=== PATIENT | female | born 2000 | race American Indian/Alaskan Native ===

== ENCOUNTER 2019-11-23 21:23 | Emergency (ER) | payer SELFPAY ==
[2019-11-23 22:11] LABS: Basophils % (Auto) 0.6 % (0.0-1.8); Eosinophils # (Auto) 0.1 K/mm3 (0.0-0.4); Hematocrit 34.4 % (30.3-42.9); Hemoglobin 10.9 gm/dl (10.1-14.3); Lymphocytes # (Auto) 2.5 K/mm3 (1.2-5.4); Lymphocytes % (Auto) 38.2 % (13.4-35.0); Mean Corpuscular HGB Conc 32 % (30-34); Monocytes # (Auto) 0.4 K/mm3 (0.0-0.8); Monocytes % (Auto) 6.7 % (0.0-7.3); Platelet Count 319 K/mm3 (140-440); Red Blood Count 4.97 M/mm3 (3.65-5.03); Red Cell Distribution Width 16.3 % (13.2-15.2)
[2019-11-23 22:17] LABS: Mean Corpuscular Volume 69 fl (79-97)
[2019-11-23 22:53] LABS: Bilirubin,Urine NEG (Negative); Blood,Urine NEG (Negative); Color,Urine Yellow (Yellow); Mucus,Urine 1+ /HPF; Protein,Urine <15 mg/dL mg/dL (Negative); WBC,Urine < 1.0 /HPF (0.0-6.0)
[2019-11-24 01:43] VITALS: BP 115/79
== END 2019-11-24 01:59 | disposition home or self-care (01) ==
LOC: ED 21:23
DX: O20.0 Threatened abortion (principal); Z3A.01 Less than 8 weeks gestation of pregnancy
CPT/HCPCS: 36415; 76801; 76817; 81001; 84702; 85025; 86900; 86901

== ENCOUNTER 2020-02-15 11:22 | Emergency (ER) | payer SELFPAY ==
[2020-02-15 11:41] VITALS: BP 119/71
--- NOTE | 2020-02-15 13:04 | Event Note ---
ED Screening Note Date of service: 02/15/20 Time: 13:01 ED Screening Note: This is a 19-year-old -0-0-2 who presents to the ED at about 19-20 weeks complaining of left-sided pelvic pain with mild spotting today Patient states that she has a history of preeclampsia her last 2 pregnancies. 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 This initial assessment/diagnostic orders/clinical plan/treatment(s) is/are subject to change based on patients health status, clinical progression and re- assessment by fellow clinical providers in the ED. Further treatment and workup at subsequent clinical providers discretion. Patient/guardian urged not to elope from the ED as their condition may be serious if not clinically assessed and managed. Initial orders include: UA, labs, ultrasound
--- NOTE | 2020-02-15 14:38 | Emergency Department Report ---
ED General Adult HPI - General Chief complaint: Abdominal Pain Stated complaint: ABD PAIN/DIZZY/SOB Time Seen by Provider: 02/15/20 14:27 Source: patient Mode of arrival: Ambulatory Limitations: No Limitations - History of Present Illness Initial comments: Patient is 19 years old female 3 para 2. Patient stated that she is 19weeks . Patient presented to the ER complaining of lower abdominal pain started this morning. Patient described her pain as cramping in nature with no radiation. Patient denied any vaginal discharge however she says she has been having some vaginal spotting. Patient denied any fever or chills. No nausea vomiting or diarrhea. - Related Data Previous Rx's Medication Instructions Recorded Last Taken Type Acetaminophen [Tylenol] 500 mg PO Q6HR PRN #30 tablet 11/24/19 Unknown Rx Allergies Allergy/AdvReac Type Severity Reaction Status Date / Time No Known Allergies Allergy Verified 02/15/20 11:38 ED Review of Systems ROS: Stated complaint: ABD PAIN/DIZZY/SOB Other details as noted in HPI Comment: All other systems reviewed and negative Constitutional: denies: chills, fever Respiratory: denies: cough, shortness of breath Cardiovascular: denies: chest pain, palpitations, dyspnea on exertion Gastrointestinal: abdominal pain. denies: nausea, vomiting, diarrhea, constipation, hematemesis, melena, hematochezia Musculoskeletal: denies: back pain Neurological: denies: headache, weakness, numbness, paresthesias, confusion, abnormal gait ED Past Medical Hx - Past Medical History Additional medical history: PRECLAMPSIA - Social History Smoking Status: Never Smoker Substance Use Type: None - Medications Home Medications: Home Medications Medication Instructions Recorded Confirmed Last Taken Type Acetaminophen [Tylenol] 500 mg PO Q6HR PRN #30 tablet 11/24/19 Unknown Rx ED Physical Exam - General Limitations: No Limitations General appearance: alert, in no apparent distress - Head Head exam: Present: atraumatic, normocephalic, normal inspection - Eye Eye exam: Present: normal appearance, PERRL - ENT ENT exam: Present: normal exam, normal orophraynx, mucous membranes moist - Neck Neck exam: Present: normal inspection, full ROM. Absent: tenderness, meningis mus, lymphadenopathy, thyromegaly - Respiratory Respiratory exam: Present: normal lung sounds bilaterally - Cardiovascular Cardiovascular Exam: Present: regular rate, normal rhythm, normal heart sounds - GI/Abdominal GI/Abdominal exam: Present: soft, normal bowel sounds. Absent: distended, tenderness, guarding, rebound, rigid, organomegaly, mass, bruit, pulsatile mass, hernia - Extremities Exam Extremities exam: Present: normal inspection, full ROM, normal capillary refill. Absent: pedal edema, calf tenderness - Back Exam Back exam: Present: normal inspection, full ROM. Absent: tenderness, CVA t enderness (R), CVA tenderness (L), muscle spasm, paraspinal tenderness, vertebral tenderness - Neurological Exam Neurological exam: Present: alert, oriented X3, CN II-XII intact, normal gait, reflexes normal - Psychiatric Psychiatric exam: Present: normal mood - Skin Skin exam: Present: warm, intact, normal color ED Course Vital Signs 02/15/20 11:40 Temperature 98.1 F Pulse Rate 86 Respiratory 17 Rate Blood Pressure 119/71 O2 Sat by Pulse 99 Oximetry ED Medical Decision Making - Lab Data Result diagrams: 02/15/20 14:27 02/15/20 14:27 - Radiology Data Radiology results: report reviewed - Medical Decision Making Patient is 19 years old female 3 para 2. Patient stated that she is 19weeks . Patient presented to the ER complaining of lower abdominal pain started this morning. Patient described her pain as cramping in nature with no radiation. Patient denied any vaginal discharge however she says she has been having some vaginal spotting. Patient denied any fever or chills. No nausea vomiting or diarrhea. Patient remained stable in the ER. Labs reviewed and is unremarkable except for asymptomatic bacteriuria for which patient received Macrobid. Ultrasound showed a 19 weeks and 2 days viable with no complication. Patient advised to follow-up with her OB doctor in the next 2 to 3 days and to return to the ER if she develop any new symptoms. Critical care attestation.: If time is entered above; I have spent that time in minutes in the direct care of this critically ill patient, excluding procedure time. ED Disposition Clinical Impression: Abdominal pain affecting , UTI (urinary tract infection), Asymptomatic bacteriuria antepartum Disposition: TO HOME OR SELFCARE Is pt being admited?: No Condition: Stable Instructions: Abdominal Pain (ED), Abdominal Pain in (ED), Urinary Tract Infection in Women (ED) Referrals: [facility], MD [Primary Care Provider] - 3-5 Days
--- NOTE | 2020-02-15 14:48 | Ultrasound Report ---
OB ULTRASOUND >= 14 WEEKS FETUS INDICATION: Pelvic pain during COMPARISON: 11/23/2019 FINDINGS: A single gestation intrauterine is present with cephalic presentation. The placenta is post erior, grade 0 and free of the cervical os. heart tones measure 152 bpm. The cervix measures 4 .1 cm. Subjective amniotic fluid volume is within normal limits. GERALDINE was not measured. anatomical survey was not performed. Biparietal diameter is 4.5 cm which equals 19 weeks 4 days. Head circumference is 17.6 cm which equals 20 weeks 1 day. Abdominal circumference is 13.9 cm which equals 19 weeks 2 days. Femur length is 4.3 cm which equals 24 weeks 1 day. Overall estimated sonographic age is 20 weeks 6 days. Estimated weight is 417 g +/- 62 g.. IMPRESSION: Viable single intrauterine as described. No acute abnormality is detected. Signer Name: Bipin Tripp Jr, MD Signed: 02/15/2020 2:44 PM Workstation Name: [id number]
[2020-02-15 14:57] LABS: Basophils % (Auto) 0.6 % (0.0-1.8); Eosinophils # (Auto) 0.1 K/mm3 (0.0-0.4); Eosinophils % (Auto) 1.3 % (0.0-4.3); Hematocrit 33.8 % (30.3-42.9); Hemoglobin 10.9 gm/dl (10.1-14.3); Lymphocytes # (Auto) 2.3 K/mm3 (1.2-5.4); Lymphocytes % (Auto) 40.8 % (13.4-35.0); Mean Corpuscular HGB Conc 32 % (30-34); Mean Corpuscular Volume 69 fl (79-97); Monocytes # (Auto) 0.3 K/mm3 (0.0-0.8); Monocytes % (Auto) 5.2 % (0.0-7.3); Platelet Count 253 K/mm3 (140-440); Red Blood Count 4.89 M/mm3 (3.65-5.03); Red Cell Distribution Width 16.4 % (13.2-15.2)
[2020-02-15 15:13] LABS: Bacteria,Urine 1+ /HPF (Negative); Bilirubin,Urine NEG (Negative); Blood,Urine NEG (Negative); Color,Urine Yellow (Yellow); Mucus,Urine 3+ /HPF; Protein,Urine <15 mg/dL mg/dL (Negative)
[2020-02-15 15:18] LABS: Blood Urea Nitrogen 4 mg/dL (7-17); Calcium 9.1 mg/dL (8.4-10.2); Hemolysis Index 2
[2020-02-15 15:32] LABS: BUN/Creatinine Ratio 10
--- NOTE | 2020-02-16 06:55 | Ultrasound Report ---
OBSTETRICAL ULTRASOUND TRANSVAGINAL HISTORY: Pelvic pain. FINDINGS: A single viable intrauterine has heart tones of 152 bpm. Cervical length is 4.1 cm. Signer Name: Ángel Godinez MD Signed: 02/16/2020 6:51 AM Workstation Name: [id number]
== END 2020-02-15 16:04 | disposition left against medical advice (07) ==
LOC: ED 11:22
DX: R42 Dizziness and giddiness (principal); Z53.21 Procedure and treatment not carried out due to patient leaving prior to being seen by health care provider
CPT/HCPCS: 36415; 76805; 76817; 80048; 81001; 84702; 85025

== ENCOUNTER 2020-04-04 10:52 | Outpatient (CLI) | payer MEDICAID ==
[2020-04-04] MEDS ORDERED: LACTATED RINGERS 500 ML IV ONE (12:00)
[2020-04-04 12:08] VITALS: BP 115/70
[2020-04-04 12:23] LABS: Bacteria,Urine 1+ /HPF (Negative); Bilirubin,Urine NEG (Negative); Blood,Urine NEG (Negative); Color,Urine Yellow (Yellow); Mucus,Urine 3+ /HPF; Protein,Urine <15 mg/dL mg/dL (Negative)
[2020-04-04] MEDS ORDERED: LIDOCAINE-MPF (1%) 10 MG/1 ML VIAL 5 ML INFILTRATI ONE (13:14)
== END 2020-04-04 14:11 | disposition home or self-care (01) ==
LOC: TRG 10:52 → APU 11:08 → TRG 14:11
PROVIDERS: ATTEND Obstetrics & Gynecology
DX: O26.892 Other specified pregnancy related conditions, second trimester (principal); R10.9 Unspecified abdominal pain; R06.02 Shortness of breath; Z3A.26 26 weeks gestation of pregnancy
CPT/HCPCS: 59025; 81001; 87086; 96372; J0696

== ENCOUNTER 2020-07-01 20:12 | Inpatient (IN) | payer OTHER ==
[2020-07-01] MEDS ORDERED: ePHEDrine SULFATE 50 MG/1 ML INJ IV PRN (22:13)
[2020-07-01] MEDS ORDERED: BUTORPHANOL 2 MG/1 ML INJ IV PRN (22:13)
[2020-07-01] MEDS ORDERED: TERBUTALINE 1 MG/1 ML INJ SUB-Q PRN (22:13)
[2020-07-01] MEDS ORDERED: NALOXONE 0.4 MG/1 ML INJ IV PRN (22:13)
[2020-07-01] MEDS ORDERED: LIDOCAINE (2%) 20 MG/1 ML VIAL 20 ML MDV INFILTRATI ONE (22:13)
[2020-07-01] MEDS ORDERED: ONDANSETRON 4 MG/2 ML INJ IV PRN (22:13)
[2020-07-01] MEDS ORDERED: MINERAL OIL 30 ML ORAL LIQD PO PRN (22:13)
[2020-07-01 22:57] LABS: Hematocrit 31.1 % (30.3-42.9); Hemoglobin 9.8 gm/dl (10.1-14.3); Mean Corpuscular HGB Conc 32 % (30-34); Platelet Count 203 K/mm3 (140-440); Red Blood Count 4.53 M/mm3 (3.65-5.03); Red Cell Distribution Width 14.8 % (13.2-15.2)
[2020-07-01 22:58] LABS: Mean Corpuscular Volume 69 fl (79-97)
[2020-07-01] MEDS ORDERED: AMPICILLIN/NS 2 GM/100 ML 2 GM/100 ML BAG IV ONE (23:00)
[2020-07-01] MEDS ORDERED: OXYTOCIN DRIP 30 UNITS/500 ML BAG IV SCH ×2 (23:00)
[2020-07-01] MEDS: LACTATED RINGERS 1,000 ML IV SCH (23:09)
[2020-07-02] MEDS: AMPICILLIN/NS 1 GM/50 ML 1 GM/50 ML BAG IV SCH ×4 (03:02→15:22)
--- NOTE | 2020-07-02 07:17 | Event Note ---
Date: 07/02/20 Notified from nursing that patient has elevated heart rate to 130's and complained of an episode of chest pain after ambulating to the restroom. Will obtain ekg. Oxygenation remains normal as does her blood pressure. Likelihood that the brief tachycardia contributed to the chest pain. Continue to monitor closely.
--- NOTE | 2020-07-02 08:29 | History and Physical Report ---
History of Present Illness Date of examination: 07/02/20 Date of admission: 07/01/20 22:13 Chief complaint: "I am having contractions" History of present illness: 19 yo at EGA 40w1d who presents with regular contractions. She denies leakage of fluid, endorses good movement. She received care from [facility]ION[facility] MANAGER. She has had limited care, with her last visit being at 32 weeks EGA. 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 GBS unknown. Early this morning, she had an episode of chest pressure and tachycardia. 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: herpes (seropositive, without history of lesions) Social history: no significant social history - Obstetrical History Expected Date of Delivery: 07/01/20 Actual Gestation: 40 Week(s) 1 Day(s) : 3 Para: 2 Hx # Term Pregnancies: 2 Number of Pregnancies: 0 Spontaneous Abortions: 0 Induced : 0 Number of Living Children: 2 Medications and Allergies Allergies Allergy/AdvReac Type Severity Reaction Status Date / Time No Known Allergies Allergy Verified 02/15/20 11:38 Home Medications Medication Instructions Recorded Confirmed Last Taken Type Vitamin 1 tab PO DAILY 07/02/20 07/02/20 07/01/20 History Active Meds: Active Medications Butorphanol Tartrate (Butorphanol 2 Mg/1 Ml Inj) 2 mg IV Q2H PRN PRN Reason: Pain , Severe (7-10) Last Admin: 07/01/20 23:11 Dose: 2 mg Documented by: Ephedrine Sulfate (Ephedrine Sulfate 50 Mg/1 Ml Inj) 10 mg IV Q2M PRN PRN Reason: Hypotension Oxytocin/Sodium Chloride (Pitocin/Ns 30 Unit/500ml) 30 units in 500 mls @ 2 mls/hr IV TITR WALTER; Protocol Lactated Ringer's (Lactated Ringers) 1,000 mls @ 125 mls/hr IV DIRECT WALTER Last Admin: 07/01/20 23:09 Dose: 125 mls/hr Documented by: Ampicillin Sodium (Ampicillin/Ns 1 Gm/50 Ml) 1 gm in 50 mls @ 100 mls/hr IV Q4H AWLTER; Protocol Last Admin: 07/02/20 07:17 Dose: 100 mls/hr Documented by: Oxytocin/Sodium Chloride (Pitocin/Ns 30 Unit/500ml) 30 units in 500 mls @ 40 mls/hr IV TITR WALTER; Protocol Mineral Oil (Mineral Oil 30 Ml Oral Liqd) 30 ml PO QHS PRN PRN Reason: Constipation Naloxone HCl (Naloxone 0.4 Mg/1 Ml Inj) 0.1 mg IV Q2MIN PRN PRN Reason: Res Rate </= 8 or 02 SAT < 92% Ondansetron HCl (Ondansetron 4 Mg/2 Ml Inj) 4 mg IV Q8H PRN PRN Reason: Nausea And Vomiting Terbutaline Sulfate (Terbutaline 1 Mg/1 Ml Inj) 0.25 mg SUB-Q ONCE PRN PRN Reason: Hyperstimulation/Hypertonicity Review of Systems All systems: negative Cardiovascular: chest pain (Chest pain concurrent with tachycardia, resolved. EKG ordered.) Genitourinary: contractions, no vaginal bleeding, no leakage of fluid, no genital sores (denies prodromal symptoms of HSV) Integumentary: other (hidradenitis, inner thighs) - Vital Signs Vital signs: Vital Signs Temp Resp 98.1 F 20 07/01/20 20:30 07/01/20 20:30 Temp Pulse Resp BP Pulse Ox 97.5 F L 92 H 16 102/70 100 07/02/20 07:18 07/02/20 08:21 07/02/20 07:18 07/02/20 07:18 07/02/20 08:21 - Physical Exam Abdomen: Positive: normal appearance. Negative: distention, tenderness, guarding Genitourinary (Female): Positive: normal external genitalia, normal perenium Vagina: Positive: normal moisture Uterus: Positive: enlarged (gravid, EFW 6lb), normal contour - Obstetrical FHR: auscultation normal, category 1 Uterine Contraction Monitor Mode: External Cervical Dilatation: 5 Cervical Effacement Percentage: 50 station: -3 Uterine Contraction Pattern: Irregular Uterine Contraction Intensity: Moderate Results Result Diagrams: 07/01/20 22:40 Abnormal lab results 07/01/20 Range/Units 22:40 Hgb 9.8 L (10.1-14.3) gm/dl MCV 69 L (79-97) fl MCH 22 L (28-32) pg All other labs normal. Assessment and Plan A: 19 yo at EGA 40w1d Advanced cervical dilation with contractions Pt reports chest pressure during episode of tachycardia. O2 sat 100%, tachycar dyana now resolved GBS status unknown P: Admit to L&D Perform EKG STAT Pain relief as requested AROM clear fluid at 0820, FHT reassuring throughout Anticipate
[2020-07-02] MEDS: LACTATED RINGERS 1,000 ML IV SCH ×3 (11:16→15:22)
[2020-07-02] MEDS ORDERED: NALOXONE 2 MG/2 ML INJ IV PRN (11:16)
[2020-07-02] MEDS ORDERED: ePHEDrine SULFATE 50 MG/1 ML INJ IV PRN (11:16)
--- NOTE | 2020-07-02 11:17 | Anesthesia Consultation ---
Anesthesia Consult and Med Hx Date of service: 07/02/20 - Airway Anesthetic Teeth Evaluation: Good ROM Head & Neck: Adequate Mental/Hyoid Distance: Adequate Mallampati Class: Class II Intubation Access Assessment: Probably Good - Pulmonary Exam CTA: Yes - Cardiac Exam Cardiac Exam: RRR - Pre-Operative Health Status ASA Pre-Surgery Classification: ASA2 Proposed Anesthetic Plan: Epidural - Pulmonary Hx Asthma: No - Cardiovascular System Hx Hypertension: No - Central Nervous System Hx Seizures: No Hx Psychiatric Problems: No - Endocrine Hx Renal Disease: No Hx Hypothyroidism: No Hx Hyperthyroidism: No - Hematic Hx Anemia: Yes (taking iron) Hx Sickle Cell Disease: No - Other Systems Hx Alcohol Use: No
--- NOTE | 2020-07-02 11:18 | Progress Note ---
Labor Epidural - Labor Epidural Start Time: 10:58 Stop Time: 11:14 Performed by:: MARIA FERNANDA ROJAS Procedure: Patient is requesting epidural for labor pain. H&P, and labs reviewed. Procedure explained, questions answered, consent obtained. Patient in sitting position with blood pressure cuff and pulse ox on and working. Timeout performed immediately before start of procedure. Sterile betadine prep/drape. 3 mL 1% lidocaine skin wheal at L[3]-L[4]. 18-gauge Revert.IO epidural needle advanced to [id number] with saline at [7] cm. Epidural dexmedetomidine [30] mcg administered. Epidural catheter advanced to [12] cm, negative aspiration for blood and csf, negative test dose 3 ml 1.5% lidocaine with epinephrine. Sterile steri-strips and tegaderm applied, followed by tape reinforcement. Patient tolerated procedure well. Poncho LANDEROS
[2020-07-02] MEDS ORDERED: fentaNYL-BUPIV 2 MCG/ML-0.125% 200 MCG/100 ML BAG EPIDURAL SCH (12:00)
--- NOTE | 2020-07-02 16:14 | Event Note ---
Date: 07/02/20 SVE /-2/bulging bag of water. AROM meconium-stained fluid at 1605, FHR reassuring throughout. Continue Pitocin titration.
--- NOTE | 2020-07-02 17:05 | Procedure Note ---
OB Delivery Note - Delivery Date of Delivery: 07/02/20 Surgeon: GILL PAEZ (Blaise Pearl, [facility]) Estimated blood loss: other (400cc) - Vaginal Delivery presentation: vertex Delivery position: OA Intrapartum events: PROM->1hr before delivery, meconium Delivery induction: none Delivery augmentation: rupture of membranes, pitocin Delivery monitor: external FHT, external uterine Route of delivery: Delivery placenta: spontaneous Delivery cord: 3 umbilical vessels Episiotomy: none Delivery laceration: vaginal side wall (L labial abrasion, hemostatic, not repaired) Anesthesia: epidural Delivery comments: Excellent maternal effort progressed to of viable male infant over intact perineum. Head delivered OA, restituted to BELA, shoulders followed easily. Infant to maternal abdomen, delayed cord clamping. Placenta delivered spontaneously and intact, 3VC. Apgars 7/9. No perineal lacerations, 1cm L labial abrasion, hemostatic. EBL 400mL, Pitocin administered IV. Mother and infant boding well. Breast feeding. - A at 1 minute: 7 at 5 minutes: 9 Gender: Male
[2020-07-02] MEDS ORDERED: ONDANSETRON 4 MG/2 ML INJ IV PRN (17:09)
[2020-07-02] MEDS ORDERED: diphenhydrAMINE 25 MG CAP PO PRN (17:09)
[2020-07-02] MEDS ORDERED: WITCH HAZEL/ GLYCERIN PAD TP PRN (17:09)
[2020-07-02] MEDS ORDERED: PROMETHAZINE 25 MG TAB PO PRN (17:09)
[2020-07-02] MEDS ORDERED: PROMETHAZINE 25 MG RECT SUPP PR PRN (17:09)
[2020-07-02] MEDS ORDERED: MAGNESIUM HYDROXIDE (MOM) ORAL LIQD UDC PO PRN (17:09)
[2020-07-02] MEDS ORDERED: LANOLIN/ZINC/DIMETHICONE (LANSINOH) 7 GM TP PRN (17:09)
[2020-07-02] MEDS: IBUPROFEN 600 MG TAB PO SCH (17:37)
[2020-07-02] MEDS: oxyCODONE /ACETAMINOPHEN 5-325MG TAB PO PRN (22:05)
[2020-07-03] MEDS: IBUPROFEN 600 MG TAB PO SCH ×4 (00:10→23:25)
[2020-07-03] MEDS: oxyCODONE /ACETAMINOPHEN 5-325MG TAB PO PRN ×2 (08:24→17:42)
--- NOTE | 2020-07-03 10:16 | Progress Note ---
Assessment and Plan A: PPD1 s/p VSS Exclusive breast feeding Labs pending P: Discharge tomorrow Routine PP care Subjective - Subjective Date of service: 07/03/20 Principal diagnosis: s/p Interval history: PPD1 s/p Patient reports: appetite normal, voiding normally, pain well controlled, ambulating normally : doing well, nursing well Objective - Vital Signs Latest vital signs: Vital Signs Temp Pulse Resp BP BP Pulse Ox 07/03/20 08:10 97.8 F 88 18 126/83 100 07/03/20 04:44 97.8 F 98 H 20 123/81 100 07/03/20 00:14 97.2 F L 87 20 107/66 98 07/02/20 21:15 98.0 F 97 H 20 111/66 99 07/02/20 18:45 97.8 F 16 07/02/20 18:16 106 H 100 07/02/20 18:15 106 H 121/72 07/02/20 18:11 88 100 07/02/20 18:06 107 H 100 07/02/20 18:01 96 H 100 07/02/20 18:00 88 120/76 07/02/20 17:56 98 H 100 07/02/20 17:53 111 H 78 L 07/02/20 17:51 106 H 98 07/02/20 17:46 88 100 07/02/20 17:45 96 H 129/86 07/02/20 17:41 96 H 100 07/02/20 17:36 94 H 99 07/02/20 17:31 99 H 124/75 98 07/02/20 17:26 101 H 99 07/02/20 17:22 106 H 92 07/02/20 17:21 106 H 90 07/02/20 17:16 99 H 100 07/02/20 17:11 108 H 99 07/02/20 17:06 109 H 100 07/02/20 17:01 111 H 100 07/02/20 17:00 113 H 124/76 07/02/20 16:56 106 H 100 07/02/20 16:51 112 H 100 07/02/20 16:48 106 H 126/79 07/02/20 16:46 119 H 99 07/02/20 16:45 126 H 119/77 07/02/20 16:41 114 H 100 01/16/21 16:36 132 H 100 07/02/20 16:31 117 H 100 07/02/20 16:30 98.2 F 129 H 18 116/58 07/02/20 16:26 104 H 100 07/02/20 16:21 97 H 100 07/02/20 16:16 82 100 07/02/20 16:15 79 97/59 93 07/02/20 16:11 95 H 99 07/02/20 16:06 105 H 100 07/02/20 16:02 105 H 80 L 07/02/20 16:01 94 H 98 07/02/20 15:56 79 100 07/02/20 15:51 91 H 77 L 07/02/20 15:46 95 H 118/60 96 07/02/20 15:45 84 93 07/02/20 15:41 93 H 99 07/02/20 15:36 96 H 99 07/02/20 15:35 114 H 89 07/02/20 15:31 94 H 100 07/02/20 15:30 98.7 F 104 H 16 89 07/02/20 15:26 80 98 07/02/20 15:21 79 99 07/02/20 15:19 104 H 91 07/02/20 15:16 75 100 07/02/20 15:15 78 105/67 07/02/20 15:11 76 100 07/02/20 15:06 83 100 07/02/20 15:01 84 100 07/02/20 15:00 75 107/71 07/02/20 14:56 95 H 100 07/02/20 14:51 83 100 07/02/20 14:46 74 104/66 100 07/02/20 14:41 72 100 07/02/20 14:36 66 100 07/02/20 14:31 85 79/51 98 07/02/20 14:26 79 99 07/02/20 14:21 111 H 100 07/02/20 14:18 109 H 113/59 07/02/20 14:16 102 H 94 07/02/20 14:15 96 H 86 07/02/20 14:11 134 H 100 07/02/20 14:06 89 99 07/02/20 14:01 76 100 07/02/20 14:00 93 H 92/60 07/02/20 13:56 92 H 100 07/02/20 13:51 68 100 07/02/20 13:46 120 H 99 07/02/20 13:45 101 H 92/62 07/02/20 13:41 87 99 07/02/20 13:36 71 100 07/02/20 13:31 112 H 98/61 99 07/02/20 13:30 88 94 07/02/20 13:26 99 H 100 07/02/20 13:21 77 100 07/02/20 13:16 81 110/67 100 07/02/20 13:11 120 H 99 07/02/20 13:06 94 H 100 07/02/20 13:01 115 H 100 07/02/20 13:00 100 H 104/72 07/02/20 12:56 78 100 07/02/20 12:51 80 100 07/02/20 12:46 77 100 07/02/20 12:45 105 H 117/71 07/02/20 12:42 61 88 07/02/20 12:41 114 H 96 07/02/20 12:37 100 H 93 07/02/20 12:35 81 99 07/02/20 12:31 80 105/68 07/02/20 12:30 79 99 07/02/20 12:25 93 H 99 07/02/20 12:20 69 99 07/02/20 12:15 95 H 108/73 98 07/02/20 12:13 100 H 99/62 07/02/20 12:11 90 100/61 07/02/20 12:10 91 H 99 07/02/20 12:09 68 113/70 07/02/20 12:07 102 H 95/59 07/02/20 12:05 98 H 101/63 99 07/02/20 12:03 97 H 100/62 07/02/20 12:01 93 H 115/62 07/02/20 12:00 98.2 F 73 16 100 07/02/20 11:59 107 H 97/60 07/02/20 11:57 71 110/77 07/02/20 11:55 106 H 104/67 100 07/02/20 11:53 92 H 109/70 07/02/20 11:51 87 110/71 07/02/20 11:50 100 H 99 01/16/21 11:49 87 111/71 07/02/20 11:47 97 H 106/72 07/02/20 11:45 90 109/72 100 07/02/20 11:44 82 89 07/02/20 11:43 96 H 130/99 07/02/20 11:41 84 113/70 07/02/20 11:40 86 100 07/02/20 11:39 99 H 126/76 07/02/20 11:37 77 123/71 07/02/20 11:35 107 H 115/79 100 07/02/20 11:33 111 H 116/85 07/02/20 11:31 75 115/67 07/02/20 11:30 71 97 07/02/20 11:27 117 H 131/86 07/02/20 11:25 97 H 133/89 100 07/02/20 11:23 115 H 98/62 07/02/20 11:21 77 98/65 07/02/20 11:20 81 100 07/02/20 11:19 98 H 104/76 93 07/02/20 11:17 98 H 110/77 07/02/20 11:15 89 109/75 100 07/02/20 11:13 94 H 109/75 07/02/20 11:11 107 H 113/82 07/02/20 11:10 104 H 100 07/02/20 11:09 95 H 118/81 07/02/20 11:07 107 H 124/90 07/02/20 11:05 94 H 120/83 99 07/02/20 11:03 101 H 113/83 07/02/20 11:01 114 H 114/81 07/02/20 11:00 109 H 100 07/02/20 10:55 95 H 100 07/02/20 10:50 105 H 100 07/02/20 10:45 102 H 100 07/02/20 10:40 111 H 100 07/02/20 10:35 100 H 100 07/02/20 10:30 88 100 07/02/20 10:23 106 H 99 07/02/20 10:18 90 100 Intake and Output 07/02/20 07/03/20 07/03/20 23:59 07:59 15:59 Intake Total 600 Output Total 1300 Balance -1300 600 Intake: Intake, Free Water 600 Output: Urine 1300 Indwelling Catheter 500 Self-Catheterization 800 Other: Total, Output Amount 800 # Voids Void 200 Estimated Blood Loss 400 - Exam Breasts: Present: normal Abdomen: Present: normal appearance, soft. Absent: distention, tenderness, guarding Uterus: Present: normal, firm, fundal height below umbilicus. Absent: bogginess, tenderness Extremities: Present: normal
[2020-07-03 10:22] LABS: Hematocrit 24.8 % (30.3-42.9); Hemoglobin 8.3 gm/dl (10.1-14.3)
--- NOTE | 2020-07-03 14:45 | Post Anesthesia Evaluation ---
- Post Anesthesia Evaluation Patient Participated: Yes Airway Patent: Yes Stable Respiratory Function: Yes Nausea/Vomiting: No Temp > 96.8F: Yes Pain Manageable: Yes Adequeate Hydration: Yes Anesthesia Complications: No Block Receding Appropriately: Yes
--- NOTE | 2020-07-03 19:52 | Discharge Summary ---
Providers - Providers Date of Admission: 07/01/20 22:13 Date of discharge: 07/04/20 Attending physician: MANUELITO UREÑA Primary care physician: MANUELITO UREÑA Hospitalization Reason for admission: active labor, IUP at term Delivery: Episiotomy: none Other procedures: none Discharge diagnosis: IUP at term delivered Condition at discharge: Good Disposition: DC-01 TO HOME OR SELFCARE Plan - Discharge Medications Prescriptions: Ferrous Sulfate [Feosol 325 MG tab] 325 mg PO BID #60 tablet Ibuprofen [Motrin] 600 mg PO Q6H PRN #60 tablet PRN Reason: Pain - Provider Discharge Summary Activity: routine, no sex for 6 weeks, no heavy lifting 4 weeks, no strenuous exercise Diet: routine Instructions: routine Additional instructions: [] Smoking cessation referral if applicable(refer to patient education folder for contact #) [] Refer to [facility]'s [facility] Booklet Call your doctor immediately for: * Fever > 100.5 * Heavy vaginal bleeding ( >1 pad per hour) * Severe persistent headache * Shortness of breath * Reddened, hot, painful area to leg or breast * Drainage or odor from incision. * Keep incision clean and dry at all times and follow doctor's instructions regarding bathing/showering - Follow up plan Follow up: GILL PAEZ CNM [Advanced Practice Nurse] - 14 Days (Please call office to schedule appointment)
[2020-07-04] MEDS: IBUPROFEN 600 MG TAB PO SCH (11:40)
[2020-07-04 17:45] VITALS: BP 120/87
== END 2020-07-04 17:15 | disposition home or self-care (01) | DRG 807 ==
LOC: TRG 20:12 → APU 20:27 → LD 22:13 → TRG 22:13 → OB 07-02 20:58
PROVIDERS: ADMIT Obstetrics & Gynecology; ATTEND Obstetrics & Gynecology
PROC: 10E0XZZ Delivery of Products of Conception, External Approach (ICD-10-PCS; principal; 2020-07-02)
PROC: 3E0R3BZ Introduction of Anesthetic Agent into Spinal Canal, Percutaneous Approach (ICD-10-PCS; 2020-07-02)
PROC: 00HU33Z Insertion of Infusion Device into Spinal Canal, Percutaneous Approach (ICD-10-PCS; 2020-07-02)
DX: O48.0 Post-term pregnancy (principal); Z37.0 Single live birth; O77.0 Labor and delivery complicated by meconium in amniotic fluid; O99.344 Other mental disorders complicating childbirth; O42.02 Full-term premature rupture of membranes, onset of labor within 24 hours of rupture; Z3A.40 40 weeks gestation of pregnancy; Z79.899 Other long term (current) drug therapy; Z20.822 Contact with and (suspected) exposure to COVID-19
CPT/HCPCS: 36415; 59025; 85014; 85018; 85027; 86592; 86850; 86900; 86901; 93005; G0378; A6250; J0290; J0595; J2590; J7120; U0003